=== PATIENT | male | born 1980 | race Hispanic/Latino ===

== ENCOUNTER 2017-01-16 21:59 | Emergency (ER) | payer OTHER ==
[2017-01-16 22:50] VITALS: BP 116/70; PULSE 62; RESP 16; O2SAT 97
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
== END 2017-01-16 23:24 | disposition home or self-care (01) ==
LOC: SED 21:59
DX: S39.012A Strain of muscle, fascia and tendon of lower back, initial encounter (principal); S46.819A Strain of other muscles, fascia and tendons at shoulder and upper arm level, unspecified arm, initial encounter; V53.5XXA Driver of pick-up truck or van injured in collision with car, pick-up truck or van in traffic accident, initial encounter; Y93.89 Activity, other specified; Y92.410 Unspecified street and highway as the place of occurrence of the external cause; Y99.8 Other external cause status